=== PATIENT | female | born 1965 | race Caucasian/White ===

== ENCOUNTER → 2024-04-01 15:46 | Outpatient (REF) | payer OTHER, SELFPAY | LOC: HWRCS 15:46 | PROVIDERS: ATTENDING PHYSICIAN Internal Medicine; FAMILY PHYSICIAN Physician Assistant Medical | DX: I10 Essential (primary) hypertension (principal); E78.00 Pure hypercholesterolemia, unspecified | CPT/HCPCS: 93306 ==

== ENCOUNTER 2024-06-20 15:31 | Emergency (ER) | payer OTHER, SELFPAY ==
[2024-06-20 15:32] VITALS: BMI 26.9
[2024-06-20 15:35] VITALS: BP 156/72
[2024-06-20 15:36] VITALS: BP 156/72
--- NOTE | 2024-06-20 15:47 | ED.GENMED ---
History of Present Illness
<Griselda Bain MD, Resident - Last Filed: 06/20/24 19:25>
General
Chief Complaint: Seizure
Source: patient, family and witness
Exam Limitations: none
Time Seen by Provider: 06/20/24 15:37
History of Present Illness
History of Present Illness:
58-year-old female with PMHx significant for hypertension, IBS, C. difficile colitis, history of carcinoma of breast in remission, spinal fusion and decompression surgeries is brought to the hospital by ambulance after a coworker noticed her to have
episode of what she thinks to be a seizure.
Prior to starting seizures, patient felt that she had blurring of vision and felt her screen at work became very blurry that she could not quite follow the letters, and then patient could not recall anything afterwards. Her coworkers saw her
shaking her hands and legs vigorously with tongue and lip biting and eyes rolling upwards however there were no bladder or bowel incontinence or vomitings during the episode. Her episode as per weakness lasted for at least 3 minutes but less than 5
minutes. This episode is followed by postictal phase where patient was mildly aware of her surroundings that she was being lifted into the ambulance and is traveling but could not recall much more details of it. Patient's daughter states that she
was staring at her but patient could not recall staring at her in the postictal phase.
Over the last 4 days patient has been having episodes of lightheadedness with cold and clammy extremities, diaphoresis and sensation of passing out.
No prior history of seizures.
Patient had history of migraines but her migraines were associated with her menstrual cycles, she got her ovaries removed in 2010, and she did not have any migraine episodes since then.
Patient denies having any headaches, nausea, chest pain, palpitations, shortness of breath, dizziness, lightheadedness, recent long travel time, fevers, chills.
If applicable-neuro sx onset
Onset of symptoms known: Yes
Date of onset of symptoms: 06/20/24
Time of onset of symptoms: 03:30
Time pt last seen normal is known: Yes
Date last time pt seen normal: 06/20/24
Time last time pt seen normal: 03:20
Past History
<Griselda Bain MD, Resident - Last Filed: 06/20/24 19:25>
Past History
ED Past Medical History: Cancer (breast cancer), HTN, Psychiatric (Anxiety/stress), Other (cervical DDD) and Other (Migraine headache, spinal arthritis.)
ED Past Surgical History: Gynecological (Tubal ligation, bladder sling. Lumpectomy) and Other (Recent cervical fusion)
Social History
Tobacco: Non-smoker
Alcohol: None (5-6 beers)
Drug: None
Personal:
Living: with family
Employment: Not employed
Family History
Family History: Adopted
Review of Systems
<Griselda Bain MD, Resident - Last Filed: 06/20/24 19:25>
Review of Systems
Allergies reviewed?: Yes
Other source history: family
All Other Systems: ROS reviewed and negative except as documented in HPI and ROS
Constitutional: Reports no symptoms
EENT: Reports no symptoms
Respiratory: Reports no symptoms
Cardiac: Reports no symptoms
ABD/GI: Reports no symptoms
: Reports no symptoms
Musculoskeletal: Reports no symptoms
Skin: Reports no symptoms
Neurological: Reports dizzy and other (Cold and clammy extremities, seizures.)
Endocrine: Reports no symptoms
Hematologic/Lymphatic: Reports no symptoms
Psychiatric: Reports no symptoms
Phy Exam
<Griselda Bain MD, Resident - Last Filed: 06/20/24 19:25>
General Physical Exam
General Presentation: no apparent distress
General Skin: warm
General Habitus: normal
General Mental: alert
General Hydration: appears well hydrated
ENT Exam
ENT Exam: TM's normal and pharynx normal
Eye Exam
Eye Exam: PERRL and EOMI
Cardiovascular Exam
Cardiovascular Exam: regular rate/rhythm, no edema, no gallop, no murmur and normal peripheral pulses
Heart Sounds: normal
Pulmonary Exam
Pulmonary Exam: lungs clear, no respiratory distress, no rales, no crackles and no rhonchi
Gastrointestinal Exam
Gastrointestinal Exam: normal bowel sounds, non tender, soft, no pulsatile mass and non distended
Neurological Exam
Neurological Exam: alert, oriented x3, CN II-XII intact, no motor deficits, normal reflexs, no sensory deficits, speech normal, cerebellum intact, normal gait and other (No pronator drift, no dysdiadochokinesia, [id number] test normal, gait
normal)
NIH Stroke Score
Level of Consciousness: 0 - Alert
LOC questions: 0-Answers both correctly
LOC Commands: 0-Performs both correctly
Best Gaze: 0-Normal
Visual Valdes: 0=Normal, no visual loss
Facial palsy: 0=Normal, symmetrical
Motor - Right Arm: 0=No drift 10 seconds
Motor - Left Arm: 0=No drift 10 seconds
Motor - Right Le-No drift 5 seconds
Motor - Left Le-No drift 5 seconds
Limb Ataxia: 0-Absent
Sensation: 0-Normal
Best Language: 0-No aphasia
Dysarthria: 0-Normal
Extinction and Inattention: 0-No abnormality
Total Score:: 0
<Alexander Davis MD - Last Filed: 06/20/24 19:20>
NIH Stroke Score
Total Score:: 0
Course
<Griselda Bain MD, Resident - Last Filed: 06/20/24 19:25>
Orders/Labs/Results
Orders:
Orders
06/20/24 15:45
Electrocardiogram (*1) Urgent
Reason for Study: Other
Other Reason for Exam: seizure
EKG- Treatment ONCE
06/20/24 16:01
Alcohol Urgent
C-Reactive Protein Urgent
Comment: ADD ON
CMP [Comprehensive Metabolic Panel] Urgent
Complete Blood Count/With Diff Urgent
Erythrocyte Sed Rate Urgent
Comment: ADD ON
Magnesium Urgent
Comment: ADD ON
TSH Urgent
Comment: ADD ON
06/20/24 16:27
Add On- LAB Urgent
Tests Added?: CBC with Differentials, Magnesium, TSH levels
06/20/24 16:28
CT Head W/o Iv Contrast Urgent
Comment:
Reason For Exam: Seizure
06/20/24 17:41
Add On- LAB Urgent
Tests Added?: blood alcohol levels, ESR and CRP
Levetiracetam Injectable [Keppra] 1,000 mg IV NOW STA
06/20/24 17:42
Urine Drug Abuse Screen Urgent
Abnormal Lab Results
06/20/24
16:01
Hct 35.2 L %
(37.0-47.0)
MPV 11.7 H fL
(7.4-10.4)
Abs Immat Gran (auto) 0.1 H 10^3/uL
(0-0.05)
Immature Gran % 1.3 H %
(0-0.5)
Carbon Dioxide 20 L mmol/L
(22-30)
AST 39 H U/L
(14-36)
ALT 38 H U/L
(0-35)
06/20/24 16:01
06/20/24 16:01
Vital Signs
Initial and Last Documented VS:
Initial Vital Signs
Resp BP Pulse Ox
25 156/72 99
06/20/24 15:35 06/20/24 15:35 06/20/24 15:35
Last Documented Vital Signs
Temp Pulse Resp BP Pulse Ox
97.9 F 86 21 131/61 100
06/20/24 15:36 06/20/24 18:30 06/20/24 18:30 06/20/24 18:00 06/20/24 18:45
<Alexander Davis MD - Last Filed: 06/20/24 19:20>
Orders/Labs/Results
Orders:
Orders
06/20/24 15:45
Electrocardiogram (*1) Urgent
Reason for Study: Other
Other Reason for Exam: seizure
EKG- Treatment ONCE
06/20/24 16:01
Alcohol Urgent
C-Reactive Protein Urgent
Comment: ADD ON
CMP [Comprehensive Metabolic Panel] Urgent
Complete Blood Count/With Diff Urgent
Erythrocyte Sed Rate Urgent
Comment: ADD ON
Magnesium Urgent
Comment: ADD ON
TSH Urgent
Comment: ADD ON
06/20/24 16:27
Add On- LAB Urgent
Tests Added?: CBC with Differentials, Magnesium, TSH levels
06/20/24 16:28
CT Head W/o Iv Contrast Urgent
Comment:
Reason For Exam: Seizure
06/20/24 17:41
Add On- LAB Urgent
Tests Added?: blood alcohol levels, ESR and CRP
Levetiracetam Injectable [Keppra] 1,000 mg IV NOW STA
06/20/24 17:42
Urine Drug Abuse Screen Urgent
Abnormal Lab Results
06/20/24
16:01
Hct 35.2 L %
(37.0-47.0)
MPV 11.7 H fL
(7.4-10.4)
Abs Immat Gran (auto) 0.1 H 10^3/uL
(0-0.05)
Immature Gran % 1.3 H %
(0-0.5)
Carbon Dioxide 20 L mmol/L
(22-30)
AST 39 H U/L
(14-36)
ALT 38 H U/L
(0-35)
06/20/24 16:01
06/20/24 16:01
Vital Signs
Initial and Last Documented VS:
Initial Vital Signs
Resp BP Pulse Ox
25 156/72 99
06/20/24 15:35 06/20/24 15:35 06/20/24 15:35
Last Documented Vital Signs
Temp Pulse Resp BP Pulse Ox
97.9 F 86 21 131/61 100
06/20/24 15:36 06/20/24 18:30 06/20/24 18:30 06/20/24 18:00 06/20/24 18:45
<Griselda Bain MD, Resident - Last Filed: 06/20/24 19:25>
MDM/Problems Addressed
Differential Diagnosis Includes:
Seizures, TIA, dysrhythmias or arrhythmias, stroke
MDM/Problems Addressed:
Seizures, Keppra loading dose of 1000 mg IV given.
Chronic conditions affecting care: Other
<Griselda Bain MD, Resident - Last Filed: 06/20/24 19:25>
*Radiology
Radiology exam reviewed: preliminary read by ED provider and radiology read reviewed
*Pulse Oximetry
Patient hypoxic: no
*EKG
Interpreted by ED Provider?: Yes
EKG Intrepretation Date: 06/20/24
EKG Intrepretation Time: 15:45
Interpretation: normal
Comparison EKG: no changes
Rate: normal
Rhythm: sinus
[place]: normal axis
Interval: normal QT interval
QRS Pattern: normal QRS
Ischemia: no ischemia
*Pig Farmer Interpretation
Rate: normal
Interpretation: normal
Rhythm: sinus
*Critical Care Note
Total Time (30-74mins, 75-104mins- exclusive of procedures): Not Applicable
<Griselda Bain MD, Resident - Last Filed: 06/20/24 19:25>
Update Note
Update Note:
Patient had an episode of lightheadedness in the ER at 5:30 PM that lasted for a few minutes.
Updated patient on her labs and the CT head being negative.
Touch base with on-call neurologist Dr. Camarillo-is in agreement with our plan for urine drug screen, blood alcohol levels, ESR, CRP, loading the patient with Keppra, giving a prescription for MRI and EEG to the patient, and following up with neurology.
ED Attending Note
<Griselda Bain MD, Resident - Last Filed: 06/20/24 19:25>
-
Portions of this chart may have been created with voice recognition software.� Occasional wrong word or��sound alike� substitutions may have occurred due to the inherent limitations of voice recognition software.
<Alexander Davis MD - Last Filed: 06/20/24 19:20>
ED Attending Note
Patient seen and examined by attending physician: Yes
ED Attending Note:
Patient with history of hypertension, IBS, and previous treated migraine headache, presents to ED after witnessed seizure-like activity at work this afternoon. Patient states that she has been feeling lightheaded intermittently for the past 4 days.
Patient has no recollection of seizure-like activities. However, patient has evidence of tongue biting. Denies urinary or bowel incontinence. Denies headache. Denies fever. Patient at the time evaluation ED, has no complaints. Denies previous
history of seizure episodes. There is no family history of seizure disorder. Denies recent illness. Denies recent change in medications or diet.
Physical Exam
General: no apparent distress, not acutely ill. afebrile
Head: nc/at. eomi
Neck: supple. no meningeal signs. normal posterior pharynx
Heart: s1/s2 regular rate and rhythm, no murmur. equal radial pulses.
Lungs: no acute respiratory distress. clear bilaterally
Abdomen: normal bowel sounds. not tender.
Neuro: alert and oriented. no focal neurological deficits. normal speech.
Skin: no rash. superficial tongue punctured onofre noted, without active bleeding
Psychiatric: well kept. interactive and cooperative
Extremities: no edema. no calf tenderness.
History and exam concerning for potential new onset seizure. Discussed with on-call neurologist, Dr. Camarillo. 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
imaging studies, i.e. MRI, as well as EEG, followed by outpatient neurology consultation.
Patient expresses understanding, at time of discharge, to the care of her spouse.
Discharge Plan
Departure
Patient Disposition: Home (Routine Discharge)
Date of Disposition: 06/20/24
Time of Disposition: 19:12
Patient with high blood pressure during this ER visit?: Yes
Condition: Good
Covid-19: Not Applicable
Discharge Problem:
Seizure, Transaminitis
Instructions: Seizures, Adult (DC), Syncope (Fainting) (DC), BLOOD PRESSURE
Prescriptions:
New
levetiracetam [Keppra] 500 mg tablet
500 mg PO BID Qty: 30 2RF
No Action
desvenlafaxine succinate [Pristiq] 100 MG tablet extended release 24 hr
100 mg PO DAILY
lisinopril 10 MG tablet
10 mg PO DAILY
zolpidem 10 MG tablet
10 mg PO HSPRN PRN (Reason: sleep)
Patient Comments:
06/20/2024: last filled 06/09/24, 30 tabs for 30 days from [facility][id number]
aripiprazole 5 mg tablet
5 mg PO DAILY
Referrals:
Tammie Montgomery CRNP [Family Provider] -
Activity Restrictions/Additional Instructions:
Scheduled for an outpatient MRI with and without contrast using the prescription given.
Start taking Keppra 500 mg 2 times a day in the morning and in the evening.
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
Stay with people around you so that someone could notice in case you have a seizure. If you have a seizure despite taking Keppra please return to ER for further evaluation.
Get an EEG for more than 1 hour (not routine study for 20 minutes).
Schedule a follow-up appointment with neurologist-earliest available, and follow-up with your primary care in outpatient.
Interventions
Interventions:
*Risk Screen - Suicide Last Done: 06/20/24 15:36
*General Assessment Last Done: 06/20/24 15:36
*Neglect/Abuse Screening Last Done: 06/20/24 15:36
ED- Fall Risk Assessment Last Done: 06/20/24 15:36
*ED COVID-19 Vaccine History Last Done: 06/20/24 15:36
ED- Cardiac Assessment Last Done: 06/20/24 15:36
ED- Neurological Assessment Last Done: 06/20/24 15:36
ED- Pulmonary Assessment Last Done: 06/20/24 15:36
Discharge Date and Time
Print Language: YI
[2024-06-20 16:00] VITALS: BP 136/64
[2024-06-20 16:11] LABS: % Basophils 0.7 % (0-2); % Eosinophils 1.6 % (0-6); % Immature Granulocytes 1.3 % (0-0.5); % Lymphocytes 38.4 % (20.5-51.1); % Monocytes 7.3 % (1.7-9.3); % Neutrophils 50.7 % (42.2-75.2); Absolute Basophils 0.1 10^3/uL (0-0.2); Absolute Eosinophils 0.1 10^3/uL (0-0.7); Absolute Immature Granulocytes 0.1 10^3/uL (0-0.05); Absolute Lymphocytes 2.9 10^3/uL (1.2-3.4); Absolute Monocytes 0.6 10^3/uL (0.1-0.6); Absolute Neutrophils 3.9 10^3/uL (1.4-6.5); Hematocrit 35.2 % (37.0-47.0); Hemoglobin 12.2 g/dL (12.0-16.0); Mean Corp Hgb Conc. 34.7 g/dL (33.0-37.0); Mean Corpuscular Hgb 28.6 pg (27.0-31.0); Mean Corpuscular Volume 82.6 fL (81.0-99.0); Mean Platelet Volume 11.7 fL (7.4-10.4); Nucleated Red Blood Cells % 0 %; Platelet Count 165 10^3/uL (130-400); Red Blood Cell Count 4.26 10^6/uL (4.20-5.40); Red Cell Dist. Width 12.7 % (11.5-14.5); White Blood Cell Count 7.7 10^3/uL (4.8-10.8)
[2024-06-20 16:23] LABS: ALT (SGPT) 38 U/L (0-35); AST (SGOT) 39 U/L (14-36); Alkaline Phosphatase 48 U/L (38-126); Blood Urea Nitrogen 8 mg/dl (7-17); Calcium 9.4 mg/dl (8.4-10.2); Carbon Dioxide 20 mmol/L (22-30); Chloride 100 mmol/L (98-107); Estimated Creatinine Clearance 82 ml/min; Glucose 79 mg/dl (70-99); Potassium 3.9 mmol/L (3.5-5.1); Sodium 139 mmol/L (135-145); Total Bilirubin 0.4 mg/dl (0.2-1.3); Total Protein 7.3 g/dl (6.3-8.2); eGFR > 60.00
[2024-06-20 17:00] VITALS: BP 131/64
[2024-06-20 17:16] LABS: Magnesium 1.9 mg/dl (1.6-2.3)
[2024-06-20] MEDS: KEPPRA 1000 MG IV (17:48)
[2024-06-20 17:56] LABS: Alcohol None Detected
[2024-06-20 17:57] LABS: C-Reactive Protein < 5.00 mg/L (0.0-10.00)
[2024-06-20 18:00] VITALS: BP 131/61
[2024-06-20 18:01] LABS: TSH 3.97 uIU/ml (0.47-4.68)
[2024-06-20 18:07] LABS: Erythrocyte Sed Rate 10 mm/hour (0-20)
[2024-06-20 19:26] VITALS: BP 131/64
== END 2024-06-20 19:38 | disposition home or self-care (01) ==
LOC: EMR 15:31
PROVIDERS: EMERGENCY PHYSICIAN Emergency Medicine; FAMILY PHYSICIAN Nurse Practitioner Adult Health
DX: R56.9 Unspecified convulsions (principal); R74.01 Elevation of levels of liver transaminase levels; I10 Essential (primary) hypertension; Z85.3 Personal history of malignant neoplasm of breast
CPT/HCPCS: 96374; 99284; 70450; 80053; 82077; 83735; 84443; 85025; 85652; 86140; 93005

== ENCOUNTER → 2024-08-25 10:33 | Outpatient (REF) | payer OTHER, SELFPAY ==
--- NOTE | 2024-08-25 19:54 | EEGC.RPT ---
Continuous EEG Report
Recording
Start Date of Data Reviewed: 08/25/24
End Date of Data Reviewed: 08/25/24
Done with Video Recording: Yes
Electrocardiogram: Unremarkable
Report
TECHNICAL REMARKS:��This is a technically satisfactory eighteen channel record employing 21 disc electrodes applied according to a measured international 10-20 electrode placement system.��There were no significant technical difficulties.��The study
was done on a [employer] System.
STUDY DURATION: 29 mins 40 secs
�
CLINICAL HISTORY: This is a 58-year-old woman with history of syncope. This study was requested to look for epileptiform abnormalities.
�
�MEDICATIONS: Keppra
REPORT: �At the onset of the EEG, the patient is awake. The background activity consists of 11-11.5 Hz, persistent, posteriorly dominant, moderate amplitude, symmetric and rhythmic activity that is reactive to eye-opening. Anteriorly, it consists of
a mixture of low voltage indeterminate activity and 20-25 Hz, persistent, low amplitude, symmetric and rhythmic activity.� Stepwise intermittent photic stimulation (1-31 Hz) and hyperventilation do not induce any abnormalities. Drowsiness is
characterized by low amplitude mixed frequency activity, decreased eye blinking, and muscle artifact.
�
�IMPRESSION: �This is a normal awake and drowsy EEG. There is no evidence of focal slowing or epileptiform activity.� A normal EEG does not rule out epilepsy. If the clinical picture warrants, a sleep-deprived awake and sleep record may be helpful.
== END ==
LOC: EEG 10:33
PROVIDERS: ATTENDING PHYSICIAN Psychiatry & Neurology Neurology; FAMILY PHYSICIAN Physician Assistant Medical
DX: R56.9 Unspecified convulsions (principal)
CPT/HCPCS: 95816

== ENCOUNTER → 2024-09-21 17:21 | Outpatient (REF) | payer OTHER, SELFPAY | LOC: MRI 3T 17:21 | PROVIDERS: ATTENDING PHYSICIAN Psychiatry & Neurology Neurology; FAMILY PHYSICIAN Physician Assistant Medical | DX: R56.9 Unspecified convulsions (principal) | CPT/HCPCS: 70553; A9575 ==